=== PATIENT | female | born 1965 | race Hispanic/Latino ===

== ENCOUNTER 2020-10-19 00:19 | Emergency (ER) | payer MEDICAID ==
[2020-10-19 02:51] VITALS: BP 107/76
--- NOTE | 2020-10-19 02:58 | Event Note ---
ED Screening Note Date of service: 10/19/20 Time: 02:57 ED Screening Note: Pt presents with vague complaints of not feeling well and weight loss states hx of hypothyroid-noncompliant with synthroid x 1 year per pt denies abdominal pain, SOB, or chest pain states mild cough Pt is a poor historian low grade fever noted at 99.7 This initial assessment/diagnostic orders/clinical plan/treatment(s) is/are subject to change based on patients health status, clinical progression and re-assessment by fellow clinical providers in the ED. Further treatment and workup at subsequent clinical providers discretion. Patient/guardian urged not to elope from the ED as their condition may be serious if not clinically assessed and managed. Initial orders include: labs CXR ekg
--- NOTE | 2020-10-19 03:47 | XRay Report ---
CHEST 2 VIEWS INDICATION: cough. COMPARISON: None. FINDINGS: Support devices: None. Heart: Within normal limits. Lungs/Pleura: No acute air space or interstitial disease. No significant pleural effusion. IMPRESSION: No acute findings. Signer Name: Kyle Ruiz MD Signed: 10/19/2020 3:43 AM Workstation Name: [id number]
[2020-10-19 04:25] LABS: Basophils # (Auto) 0.1 K/mm3 (0.0-0.1); Eosinophils % (Auto) 0.9 % (0.0-4.3); Hematocrit 39.8 % (30.3-42.9); Hemoglobin 13.8 gm/dl (10.1-14.3); Lymphocytes # (Auto) 1.4 K/mm3 (1.2-5.4); Lymphocytes % (Auto) 24.6 % (13.4-35.0); Mean Corpuscular HGB Conc 35 % (30-34); Mean Corpuscular Volume 101 fl (79-97); Monocytes # (Auto) 0.6 K/mm3 (0.0-0.8); Monocytes % (Auto) 10.1 % (0.0-7.3); Platelet Count 440 K/mm3 (140-440); Red Blood Count 3.95 M/mm3 (3.65-5.03); Red Cell Distribution Width 13.9 % (13.2-15.2)
[2020-10-19 04:47] LABS: Alanine Aminotransferase 54 units/L (7-56); BUN/Creatinine Ratio 15; Blood Urea Nitrogen 12 mg/dL (7-17); Calcium 9.6 mg/dL (8.4-10.2); Hemolysis Index 17
[2020-10-19 07:32] LABS: Bacteria,Urine 1+ /HPF (Negative); Bilirubin,Urine NEG (Negative); Blood,Urine NEG (Negative); Color,Urine Yellow (Yellow); Protein,Urine <15 mg/dL mg/dL (Negative); RBC,Urine < 1.0 /HPF (0.0-6.0); Urobilinogen,Urine < 2.0 mg/dL (<2.0); WBC,Urine < 1.0 /HPF (0.0-6.0)
[2020-10-19] MEDS ORDERED: KETOROLAC 30 MG/1 ML INJ IV ONE (10:35)
[2020-10-19] MEDS ORDERED: SODIUM CHLORIDE 0.9% 1000 ML 1,000 ML IV ONE (10:35)
--- NOTE | 2020-10-19 10:36 | Emergency Department Report ---
HPI - General Chief Complaint: Medical Clearance Time Seen by Provider: 10/19/20 10:31 - HPI HPI: It should be noted that this patient has been here for 10 hours prior to my shift starting. It looks like the patient initially registered but then did not show up for triage when called, but then later made herself known to be here for evaluation. This is a 55-year-old female who presents to the emergency department with complaint of feeling dehydrated, fatigued and having some generalized weakness. The patient has a history of hypothyroidism for which she said she was previously on 300 mcg of Synthroid but admits to noncompliance over the past year. She also has a past medical history of osteoarthritis of the spine, GERD, migraine headaches. The patient presents with a temperature of 99.7 F last night, but denies feeling feverish or having chills or sweats. She denies any chest pain, shortness of breath, cough, nausea, vomiting, abdominal pain. Patient says that she lost her home about 1 year ago. She does have somewhere t hat she stays but it does not appear to be a stable residence. The patient says that she is "moving" in a week. She is a tobacco smoker but denies any illicit drug use. ED Past Medical Hx - Past Medical History Previous Medical History?: Yes Hx Heart Attack/AMI: Yes Hx GERD: Yes Hx Arthritis: Yes (spine) Hx Headaches / Migraines: Yes - Surgical History Past Surgical History?: Yes Hx Cholecystectomy: Yes - Social History Smoking Status: Current Every Day Smoker Substance Use Type: None - Medications Home Medications: Home Medications Medication Instructions Recorded Confirmed Last Taken Type Levothyroxine [Synthroid] 125 mcg PO BID 03/19/14 03/26/14 03/24/14 08:00 History 125 mcg Metoprolol [Lopressor TAB] 25 mg PO DAILY 03/19/14 03/26/14 03/24/14 08:00 History 25 mg ALPRAZolam [Alprazolam] 1 mg PO Q4HR PRN 03/26/14 03/26/14 03/25/14 22:00 History 1 mg Levothyroxine [Synthroid] 75 mcg PO QAM #15 tablet 10/19/20 Unknown Rx ED Review of Systems ROS: Stated complaint: DEHYDRATED Other details as noted in HPI Comment: All other systems reviewed and negative Constitutional: weakness. denies: chills Eyes: denies: eye pain, vision change ENT: denies: ear pain, throat pain Respiratory: denies: cough, shortness of breath Cardiovascular: denies: chest pain, palpitations Gastrointestinal: denies: abdominal pain, vomiting Genitourinary: denies: dysuria, discharge Musculoskeletal: denies: back pain, arthralgia Skin: denies: rash, lesions Neurological: denies: headache, numbness, paresthesias Physical Exam - Physical Exam Vital Signs: Vital Signs 10/19/20 10/19/20 02:39 02:40 Temperature 99.7 F H 99.7 F H Pulse Rate 54 L 53 L Respiratory 18 18 Rate Blood Pressure 107/76 O2 Sat by Pulse 98 98 Oximetry Physical Exam: GENERAL: The patient is well-developed well-nourished. HENT: Normocephalic. Atraumatic. Patient has moist mucous membranes. EYES: Extraocular motions are intact. NECK: Supple. Trachea is midline. CHEST/LUNGS: Clear to auscultation. There is no respiratory distress noted. HEART/CARDIOVASCULAR: Regular. There is no tachycardia. There is no murmur. ABDOMEN: Abdomen is soft, nontender. Patient has normal bowel sounds. SKIN: Skin is warm and dry. NEURO: The patient is awake, alert, and oriented. The patient is cooperative. The patient has no focal neurologic deficits. Normal speech. MUSCULOSKELETAL: There is no tenderness or deformity. There is no limitation range of motion. ED Course Vital Signs 10/19/20 10/19/20 02:39 02:40 Temperature 99.7 F H 99.7 F H Pulse Rate 54 L 53 L Respiratory 18 18 Rate Blood Pressure 107/76 O2 Sat by Pulse 98 98 Oximetry ED Medical Decision Making - Lab Data Result diagrams: 10/19/20 03:32 10/19/20 03:32 - Radiology Data Radiology results: image reviewed interpreted by me: Chest x-ray does not show any acute process. There are no pleural effusions, obvious pneumonia and there is no pneumothorax. No significant cardiomegaly. - Medical Decision Making This patient presented to the emergency department last night with a complaint of some generalized weakness and fatigue. She has a history of hypothyroidism and admits to medication noncompliance. The patient's labs have been unremarkable including CBC, metabolic panel, troponin, and urinalysis. However the patient's TSH did come back at about 100 showing uncontrolled hypothyroidism. The patient may have had a low-grade fever when she first arrived as it showed 99.7 F. The rest of the vital signs were reassuring. She did have a chest x-ray that did not show any pneumonia, pleural effusions, pneumothorax, or any other acute process. Initially the patient asked me for some IV fluid saying that she was dehydrated. I ordered for the patient received a 1 L bolus of normal saline and get a dose of levothyroxine. The plan was also to give the patient outpatient referrals for primary care and restart her on a prescription of the Synthroid/levothyroxine. However shortly after the orders were placed and the patient was evaluated, she eloped from the emergency department. Critical Care Time: No Critical care attestation.: If time is entered above; I have spent that time in minutes in the direct care of this critically ill patient, excluding procedure time. ED Disposition Clinical Impression: Musculoskeletal pain Hypothyroidism Qualifiers: Hypothyroidism type: unspecified Qualified Code(s): E03.9 - Hypothyroidism, unspecified Fatigue Qualifiers: Fatigue type: unspecified Qualified Code(s): R53.83 - Other fatigue Disposition: DC-01 TO HOME OR SELFCARE Is pt being admited?: No Condition: Stable Instructions: Fatigue, Hypothyroidism Additional Instructions: Please follow-up with a primary care physician in the next few days. Increase your oral rehydration. I am restarting you on levothyroxine/Synthroid. Please follow-up with a primary care physician within a week to recheck your TSH level. Return to the emergency department with any worsening of your symptoms, new or concerning symptoms not addressed during this current emergency department visit, or with any acute distress. Prescriptions: Levothyroxine [Synthroid] 75 mcg PO QAM #15 tablet Referrals: [facility] [Provider Group] - 2-3 Days Time of Disposition: 11:29
[2020-10-19] MEDS ORDERED: LEVOTHYROXINE 125 MCG TAB PO ONE (11:00)
== END 2020-10-19 11:55 | disposition home or self-care (01) ==
LOC: ED 00:19
DX: E03.9 Hypothyroidism, unspecified (principal); M79.10 Myalgia, unspecified site; R53.83 Other fatigue; I25.2 Old myocardial infarction; K21.9 Gastro-esophageal reflux disease without esophagitis; M19.91 Primary osteoarthritis, unspecified site; G43.909 Migraine, unspecified, not intractable, without status migrainosus; F17.200 Nicotine dependence, unspecified, uncomplicated; Z90.49 Acquired absence of other specified parts of digestive tract; Z79.899 Other long term (current) drug therapy; Z88.8 Allergy status to other drugs, medicaments and biological substances
CPT/HCPCS: 36415; 71046; 80053; 81001; 83690; 84443; 84484; 85025; 99283; J1885

== ENCOUNTER 2021-04-27 19:50 | Emergency (ER) | payer SELFPAY ==
--- NOTE | 2021-04-27 22:25 | Emergency Department Report ---
ED General Adult HPI - General Chief complaint: Nausea/Vomiting/Diarrhea Stated complaint: NAUSEA Time Seen by Provider: 04/27/21 20:35 Source: patient, EMS Mode of arrival: Stretcher Limitations: Altered Mental Status - History of Present Illness Initial comments: 56-year-old female with reported past medical history of thyroid disorder who has not taken her thyroid medication over a year presents emergency department complaining of a myriad of issues. States that she has had some occasional palpitations a few days ago and she has some aches and cramps to her body which she thinks may be thyroid or thyroid related. She is unsure of this is from her thyroid due to her her living situation and states she has been sleeping in odd places an which may have contributed to her symptoms. States that she cannot continue to live in the area where she is living and seeks assistance with placement elsewhere. States that she is interested in taking in taking medications but wanted to stay at the hospital for a couple days help her feel better she has no place to sleep right now. Currently she reports no chest pain, no headache, no blurred vision, no chest pain or shortness of of breath. She reports no suicidal homicidal ideation she reports no psychosis. -: Gradual Improves with: none Worsens with: none Treatments Prior to Arrival: none - Related Data Home Medications Medication Instructions Recorded Confirmed Last Taken Levothyroxine [Synthroid] 125 mcg PO BID 03/19/14 03/26/14 03/24/14 08:00 125 mcg Metoprolol [Lopressor TAB] 25 mg PO DAILY 03/19/14 03/26/14 03/24/14 08:00 25 mg ALPRAZolam [Alprazolam] 1 mg PO Q4HR PRN 03/26/14 03/26/14 03/25/14 22:00 1 mg Previous Rx's Medication Instructions Recorded Last Taken Type Levothyroxine [Synthroid] 75 mcg PO QAM #15 tablet 10/19/20 Unknown Rx Allergies Allergy/AdvReac Type Severity Reaction Status Date / Time diphenhydramine HCl Allergy STOMACH Verified 03/21/14 09:55 [From Benadryl] SICKNESS ED Review of Systems ROS: Stated complaint: NAUSEA Other details as noted in HPI Comment: All other systems reviewed and negative ED Past Medical Hx - Past Medical History Hx Heart Attack/AMI: Yes Hx GERD: Yes Hx Arthritis: Yes (spine) Hx Headaches / Migraines: Yes - Surgical History Hx Cholecystectomy: Yes - Social History Smoking Status: Current Some Day Smoker Substance Use Type: Other - Medications Home Medications: Home Medications Medication Instructions Recorded Confirmed Last Taken Type Levothyroxine [Synthroid] 125 mcg PO BID 03/19/14 03/26/14 03/24/14 08:00 History 125 mcg Metoprolol [Lopressor TAB] 25 mg PO DAILY 03/19/14 03/26/14 03/24/14 08:00 History 25 mg ALPRAZolam [Alprazolam] 1 mg PO Q4HR PRN 03/26/14 03/26/14 03/25/14 22:00 History 1 mg Levothyroxine [Synthroid] 75 mcg PO QAM #15 tablet 10/19/20 Unknown Rx ED Physical Exam - General Limitations: Altered Mental Status General appearance: alert, in no apparent distress - Head Head exam: Present: atraumatic, normocephalic - Eye Eye exam: Present: normal appearance, PERRL, EOMI Pupils: Present: normal accommodation - ENT ENT exam: Present: mucous membranes moist - Neck Neck exam: Present: normal inspection - Respiratory Respiratory exam: Present: normal lung sounds bilaterally. Absent: respiratory distress - Cardiovascular Cardiovascular Exam: Present: regular rate, normal rhythm. Absent: systolic murmur, diastolic murmur, rubs, gallop - GI/Abdominal GI/Abdominal exam: Present: soft, normal bowel sounds - Extremities Exam Extremities exam: Present: normal inspection - Back Exam Back exam: Present: normal inspection - Neurological Exam Neurological exam: Present: alert, oriented X3 - Psychiatric Psychiatric exam: Present: normal affect, normal mood - Skin Skin exam: Present: warm, dry, intact, normal color. Absent: rash ED Medical Decision Making - Medical Decision Making Vital signs stable patient is awake alert and oriented x3 she is ambulatory speaking in full sentences with no dyspnea. I have provided medical screening examination and evaluation. The patient is clinically stable for discharge. I have communicated post discharge medical needs to the patient the patient has been provided with 4 of the of following Male, weather appropriate clothing, prescription for an adequate supply of medications from a outpatient pharmacy. Referral to an outpatient clinic for for further screening and medication management. Critical care attestation.: If time is entered above; I have spent that time in minutes in the direct care of this critically ill patient, excluding procedure time. ED Disposition Clinical Impression: Nausea, Homelessness Disposition: 01 HOME / SELF CARE / HOMELESS Is pt being admited?: No Does the pt Need Aspirin: No Condition: Stable Instructions: Nausea, Adult, [id number], Stress, Adult Referrals: PRIMARY CARE,MD [Primary Care Provider] - 3-5 Days [facility], [LAB/CONTRACT] - 3-5 Days [facility] [Provider Group] - 3-5 Days
== END 2021-04-28 05:25 | disposition home or self-care (01) ==
LOC: ED 19:50
DX: R11.0 Nausea (principal); I25.2 Old myocardial infarction; K21.9 Gastro-esophageal reflux disease without esophagitis; M19.90 Unspecified osteoarthritis, unspecified site; G43.909 Migraine, unspecified, not intractable, without status migrainosus; F17.200 Nicotine dependence, unspecified, uncomplicated; Z90.49 Acquired absence of other specified parts of digestive tract; Z79.899 Other long term (current) drug therapy; Z88.8 Allergy status to other drugs, medicaments and biological substances; Z76.0 Encounter for issue of repeat prescription

== ENCOUNTER 2021-06-12 21:08 | Emergency (ER) | payer SELFPAY ==
[2021-06-12 21:43] VITALS: BP 99/69
[2021-06-12] MEDS ORDERED: ONDANSETRON 4 MG ODT TAB PO ONE (21:49)
--- NOTE | 2021-06-12 21:54 | Emergency Department Report ---
ED General Adult HPI - General Chief complaint: Anxiety Stated complaint: DIZZINESS AND VOMITING Time Seen by Provider: 06/12/21 21:47 Source: patient Mode of arrival: Ambulatory Limitations: No Limitations - History of Present Illness Initial comments: Patient 56-year-old female with history of anxiety and hypothyroid presents today complaining of anxiety. States psychosocial problems family was evicted 3 days ago. States she is nervous about not having anywhere to stay as they are homeless. Patient was eating dinner at [employer] today states never so bad it made her throw up. Patient presents to ED via family member and POV. Patient rates stress at 4/10. Patient denies SI denies HI. She denies abdominal pain no chest pain no shortness of breath no nausea vomiting. Patient is alert and oriented x3 there is no acute distress. Patient states she is out of her Synthroid, and is currently not taking any psychiatric medications. Fami ly member is accompanying patient. - Related Data Home Medications Medication Instructions Recorded Confirmed Last Taken Levothyroxine [Synthroid] 125 mcg PO BID 03/19/14 03/26/14 03/24/14 08:00 125 mcg Metoprolol [Lopressor TAB] 25 mg PO DAILY 03/19/14 03/26/14 03/24/14 08:00 25 mg ALPRAZolam [Alprazolam] 1 mg PO Q4HR PRN 03/26/14 03/26/14 03/25/14 22:00 1 mg Previous Rx's Medication Instructions Recorded Last Taken Type Levothyroxine [Synthroid] 75 mcg PO QAM #15 tablet 10/19/20 Unknown Rx Levothyroxine [Synthroid] 125 mcg PO QAM #30 tablet 06/13/21 Unknown Rx hydrOXYzine HCL [Atarax] 25 mg PO Q8HR PRN #12 tablet 06/13/21 Unknown Rx Allergies Allergy/AdvReac Type Severity Reaction Status Date / Time diphenhydramine HCl Allergy STOMACH Verified 03/21/14 09:55 [From Bensammyl] SICKNESS ED Review of Systems ROS: Stated complaint: DIZZINESS AND VOMITING Other details as noted in HPI Constitutional: denies: chills, fever Eyes: denies: eye pain, eye discharge, vision change ENT: denies: ear pain, throat pain Respiratory: denies: cough, shortness of breath, wheezing Cardiovascular: denies: chest pain, palpitations Endocrine: no symptoms reported Gastrointestinal: as per HPI, nausea, vomiting Genitourinary: denies: urgency, dysuria, frequency, hematuria, discharge Musculoskeletal: denies: back pain, joint swelling, arthralgia Skin: denies: rash, lesions Neurological: denies: headache, weakness, paresthesias Psychiatric: anxiety. denies: auditory hallucinations, visual hallucinations, homicidal thoughts, suicidal thoughts Hematological/Lymphatic: denies: easy bleeding, easy bruising ED Past Medical Hx - Past Medical History Previous Medical History?: Yes Hx Heart Attack/AMI: Yes Hx GERD: Yes Hx Arthritis: Yes (spine) Hx Headaches / Migraines: Yes - Surgical History Past Surgical History?: Yes Hx Cholecystectomy: Yes - Social History Smoking Status: Current Some Day Smoker Substance Use Type: Other - Medications Home Medications: Home Medications Medication Instructions Recorded Confirmed Last Taken Type Levothyroxine [Synthroid] 125 mcg PO BID 03/19/14 03/26/14 03/24/14 08:00 History 125 mcg Metoprolol [Lopressor TAB] 25 mg PO DAILY 03/19/14 03/26/14 03/24/14 08:00 History 25 mg ALPRAZolam [Alprazolam] 1 mg PO Q4HR PRN 03/26/14 03/26/14 03/25/14 22:00 History 1 mg Levothyroxine [Synthroid] 75 mcg PO QAM #15 tablet 10/19/20 Unknown Rx Levothyroxine [Synthroid] 125 mcg PO QAM #30 tablet 06/13/21 Unknown Rx hydrOXYzine HCL [Atarax] 25 mg PO Q8HR PRN #12 tablet 06/13/21 Unknown Rx ED Physical Exam - General Limitations: No Limitations General appearance: alert, in no apparent distress - Head Head exam: Present: atraumatic, normocephalic - Eye Eye exam: Present: normal appearance, EOMI - ENT ENT exam: Present: mucous membranes moist - Neck Neck exam: Present: normal inspection, full ROM. Absent: tenderness - Respiratory Respiratory exam: Present: normal lung sounds bilaterally, wheezes. Absent: respiratory distress, stridor, chest wall tenderness - Cardiovascular Cardiovascular Exam: Present: regular rate, normal rhythm. Absent: systolic mur mur, diastolic murmur, rubs, gallop - GI/Abdominal GI/Abdominal exam: Present: soft, normal bowel sounds. Absent: distended, tenderness, guarding, rebound, rigid, bruit, hernia - Rectal Rectal exam: Present: deferred - Extremities Exam Extremities exam: Present: normal inspection, full ROM, normal capillary refill. Absent: tenderness - Back Exam Back exam: Present: normal inspection, full ROM. Absent: CVA tenderness (R), CVA tenderness (L) - Neurological Exam Neurological exam: Present: alert, oriented X3 - Psychiatric Psychiatric exam: Present: anxious. Absent: homicidal ideation, suicidal ideation - Skin Skin exam: Present: warm, dry, intact, normal color. Absent: rash ED Course Vital Signs 06/12/21 21:40 Temperature 97.8 F Pulse Rate 74 Respiratory 18 Rate Blood Pressure 99/69 O2 Sat by Pulse 94 Oximetry ED Medical Decision Making - Lab Data Result diagrams: 06/12/21 22:25 06/12/21 22:25 Labs 06/12/21 06/12/21 06/12/21 22:25 22:25 22:25 WBC 10.1 RBC 4.46 Hgb 14.7 H Hct 44.3 H MCV 99 H MCH 33 H MCHC 33 RDW 14.6 Plt Count 432 Lymph % (Auto) 9.5 L [place] % (Auto) 5.5 Eos % (Auto) 1.1 Baso % (Auto) 0.1 Lymph # (Auto) 1.0 L [place] # (Auto) 0.6 Eos # (Auto) 0.1 Baso # (Auto) 0.0 Seg Neutrophils % 83.8 H Seg Neutrophils # 8.5 H Sodium 141 Potassium 5.1 H Chloride 103.5 Carbon Dioxide 25 Anion Gap 18 BUN 19 H Creatinine 0.7 Estimated GFR > 60 BUN/Creatinine Ratio 27 Glucose 81 Calcium 9.5 Total Bilirubin 0.60 AST 38 ALT 37 Alkaline Phosphatase 87 Total Protein 7.4 Albumin 4.8 Albumin/Globulin Ratio 1.8 TSH 135.700 H Urine Color Urine Turbidity Urine pH Ur Specific [place] Urine Protein Urine Glucose (UA) Urine Ketones Urine Blood Urine Nitrite Urine Bilirubin Urine Urobilinogen Ur Leukocyte Esterase Urine WBC (Auto) Urine RBC (Auto) U Epithel Cells (Auto) Urine Mucus 06/12/21 Unknown WBC RBC Hgb Hct MCV MCH MCHC RDW Plt Count Lymph % (Auto) [place] % (Auto) Eos % (Auto) Baso % (Auto) Lymph # (Auto) [place] # (Auto) Eos # (Auto) Baso # (Auto) Seg Neutrophils % Seg Neutrophils # Sodium Potassium Chloride Carbon Dioxide Anion Gap BUN Creatinine Estimated GFR BUN/Creatinine Ratio Glucose Calcium Total Bilirubin AST ALT Alkaline Phosphatase Total Protein Albumin Albumin/Globulin Ratio TSH Urine Color Yellow Urine Turbidity Slightly-cloudy Urine pH 5.0 Ur Specific [place] 1.019 Urine Protein <15 mg/dl Urine Glucose (UA) Neg Urine Ketones Neg Urine Blood Neg Urine Nitrite Neg Urine Bilirubin Neg Urine Urobilinogen < 2.0 Ur Leukocyte Esterase Neg Urine WBC (Auto) 1.0 Urine RBC (Auto) 3.0 U Epithel Cells (Auto) 10.0 Urine Mucus Few - EKG Data EKG shows normal: sinus rhythm Rate: normal - EKG Data Interpretation: normal EKG (NSR no STEMI interp by ed attending ) - Radiology Data Radiology results: report reviewed, image reviewed CHEST 2 VIEWS INDICATION / CLINICAL INFORMATION: dizziness. COMPARISON: 10/19/2020 FINDINGS: SUPPORT DEVICES: None. HEART / MEDIASTINUM: No significant abnormality. LUNGS / PLEURA: No significant pulmonary or pleural abnormality. No pneumothorax. ADDITIONAL FINDINGS: No significant additional findings. IMPRESSION: 1. No acute findings. Signer Name: Milton Castillo MD Signed: 06/13/2021 3:53 AM Workstation Name: [id number] - Medical Decision Making EKG normal sinus rhythm no ST elevated SC interpreted by ED attending, chest x- ray is normal no infiltrates no opacities. Symptoms are improved. Plan refill Synthroid, will follow-up with [facility] in 2 to 3 days, patient will take other medications as prescribed. Patient DC'd home in stable condition at this time. 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 Patient given community resource packet. Patient currently alert oriented x3 amatory with steady gait in no acute distress at this time. His chronic hypothyroidism, chronic anxiety and stress. There is no HI or SI today. New stressor is homelessness. However patient is going home with family member at this time. Critical care attestation.: If time is entered above; I have spent that time in minutes in the direct care of this critically ill patient, excluding procedure time. ED Disposition Clinical Impression: Stress Hypothyroidism Qualifiers: Hypothyroidism type: unspecified Qualified Code(s): E03.9 - Hypothyroidism, unspecified Disposition: HOME / SELF CARE / HOMELESS Is pt being admited?: No Does the pt Need Aspirin: No Condition: Stable Instructions: Hypothyroidism, Adjustment Disorder, Adult Additional Instructions: Follow-up with your doctor as directed, take all medications as prescribed. Prescriptions: hydrOXYzine HCL [Atarax] 25 mg PO Q8HR PRN #12 tablet PRN Reason: Itching Levothyroxine [Synthroid] 125 mcg PO QAM #30 tablet Referrals: [facility] [Outside] - 3-5 Days [facility] [Provider Group] - 3-5 Days Time of Disposition: 05:29
[2021-06-12 22:55] LABS: Hematocrit 44.3 % (30.3-42.9); Hemoglobin 14.7 gm/dl (10.1-14.3); Mean Corpuscular HGB Conc 33 % (30-34); Mean Corpuscular Volume 99 fl (79-97); Platelet Count 432 K/mm3 (140-440); Red Blood Count 4.46 M/mm3 (3.65-5.03); Red Cell Distribution Width 14.6 % (13.2-15.2)
[2021-06-12 23:05] LABS: Basophils % (Auto) 0.1 % (0.0-1.8); Eosinophils % (Auto) 1.1 % (0.0-4.3); Lymphocytes % (Auto) 9.5 % (13.4-35.0); Monocytes % (Auto) 5.5 % (0.0-7.3)
[2021-06-12 23:06] LABS: Eosinophils # (Auto) 0.1 K/mm3 (0.0-0.4); Monocytes # (Auto) 0.6 K/mm3 (0.0-0.8)
[2021-06-12 23:21] LABS: Alanine Aminotransferase 37 units/L (7-56); Albumin 4.8 g/dL (3.9-5); Blood Urea Nitrogen 19 mg/dL (7-17); Calcium 9.5 mg/dL (8.4-10.2); Hemolysis Index 6
[2021-06-12 23:38] LABS: BUN/Creatinine Ratio 27
[2021-06-13] MEDS ORDERED: SODIUM CHLORIDE 0.9% 1000 ML 1,000 ML IV ONE (00:15)
[2021-06-13 00:18] LABS: Bilirubin,Urine NEG (Negative); Blood,Urine NEG (Negative); Color,Urine Yellow (Yellow); Mucus,Urine FEW /HPF; Protein,Urine <15 mg/dL mg/dL (Negative); Urobilinogen,Urine < 2.0 mg/dL (<2.0)
[2021-06-13] MEDS ORDERED: LEVOTHYROXINE 150 MCG, LEVOTHYROXINE 25 MCG PO ONE (03:34)
--- NOTE | 2021-06-13 03:57 | XRay Report ---
CHEST 2 VIEWS INDICATION / CLINICAL INFORMATION: dizziness. COMPARISON: 10/19/2020 FINDINGS: SUPPORT DEVICES: None. HEART / MEDIASTINUM: No significant abnormality. LUNGS / PLEURA: No significant pulmonary or pleural abnormality. No pneumothorax. ADDITIONAL FINDINGS: No significant additional findings. IMPRESSION: 1. No acute findings. Signer Name: Milton Castillo MD Signed: 06/13/2021 3:53 AM Workstation Name: [id number]
--- NOTE | 2021-06-13 14:16 | Electrocardiograph Report ---
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
--- NOTE | 2021-06-13 14:17 | Electrocardiograph Report ---
[facility] Test Date: 2021-06-13 Test Time: 04:01:51 Pat Name: GLADYS WATSON Department: Room: Gender: F Buffer Inflated Pad: [id number] : 1965 Requested By: DEBBIE VERNON Order Number: [id number] Reading MD: Josep Pickett Measurements Intervals [place] Rate: 80 P: ME: QRS: 30 QRSD: 73 T: 252 QT: 371 QTc: 429 Interpretive Statements Accelerated junctional rhythm, no evident P waves Low voltage, precordial leads Nonspecific repol abnormality, diffuse leads Compared to ECG 06/13/2021 01:56:52 No significant change Electronically Signed On 06-13-2021 14:17:19 EDT by Josep Pickett
== END 2021-06-13 05:44 | disposition home or self-care (01) ==
LOC: ED 21:08
DX: F43.9 Reaction to severe stress, unspecified (principal); E03.9 Hypothyroidism, unspecified; I25.2 Old myocardial infarction; K21.9 Gastro-esophageal reflux disease without esophagitis; G43.909 Migraine, unspecified, not intractable, without status migrainosus
CPT/HCPCS: 36415; 71046; 80053; 81001; 84443; 84484; 85025; 93005; 96360; 99284; J7030; Q0162

== ENCOUNTER 2021-06-14 20:22 | Emergency (ER) | payer SELFPAY ==
[2021-06-14] MEDS ORDERED: HALOPERIDOL LACTATE 5 MG/1 ML INJ IM ONE (20:47)
[2021-06-14] MEDS ORDERED: FAMOTIDINE 20 MG/2 ML INJ IV ONE (20:47)
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
[2021-06-14] MEDS ORDERED: KETOROLAC 30 MG/1 ML INJ IV ONE (22:29)
[2021-06-14 23:10] LABS: Hematocrit 36.3 % (30.3-42.9); Hemoglobin 12.1 gm/dl (10.1-14.3); Mean Corpuscular HGB Conc 33 % (30-34); Mean Corpuscular Volume 99 fl (79-97); Platelet Count 312 K/mm3 (140-440); Red Blood Count 3.66 M/mm3 (3.65-5.03); Red Cell Distribution Width 14.6 % (13.2-15.2)
[2021-06-14 23:31] LABS: Alanine Aminotransferase 25 units/L (7-56); BUN/Creatinine Ratio 23; Blood Urea Nitrogen 14 mg/dL (7-17); Calcium 8.9 mg/dL (8.4-10.2); Hemolysis Index 11
[2021-06-15 01:11] VITALS: BP 127/81
--- NOTE | 2021-06-17 18:52 | Electrocardiograph Report ---
[facility] Test Date: 2021-06-14 Test Time: 20:20:46 Pat Name: GLADYS WATSON Department: Room: Gender: F Senior [employer]or: : 1965 Requested By: KENNY REID Order Number: [id number] Reading MD: Josep Pickett Measurements Intervals [place] Rate: 73 P: [place]: QRS: 48 QRSD: 72 T: 236 QT: 381 QTc: 421 Interpretive Statements Accelerated junctional rhythm no P waves evident Low voltage, precordial leads Compared to ECG 06/13/2021 04:01:51 No significant change Electronically Signed On 06-17-2021 18:52:13 EDT by Josep Pickett
== END 2021-06-15 01:25 | disposition home or self-care (01) ==
LOC: ED 20:22
DX: G89.29 Other chronic pain (principal); R07.89 Other chest pain; R10.9 Unspecified abdominal pain; F41.9 Anxiety disorder, unspecified; K21.9 Gastro-esophageal reflux disease without esophagitis; M19.90 Unspecified osteoarthritis, unspecified site; F17.200 Nicotine dependence, unspecified, uncomplicated; G43.909 Migraine, unspecified, not intractable, without status migrainosus; Z90.49 Acquired absence of other specified parts of digestive tract; Z88.8 Allergy status to other drugs, medicaments and biological substances; Z79.899 Other long term (current) drug therapy
CPT/HCPCS: 36415; 80053; 85027; 93005; 96372; 96374; 96375; 99284; J1630; J1885